=== PATIENT | female | born 1970 | race Caucasian/White ===

== ENCOUNTER 2023-05-30 13:45 | Emergency (ER) | payer MEDICAID, SELFPAY ==
[2023-05-30 13:52] VITALS: BP 153/79; PULSE 89; RESP 18; TEMP 36.3; O2SAT 98; BMI 26.9
--- NOTE | 2023-05-30 15:51 | ED_ITS ---
HPI - Extremity Problem 2 General: Chief complaint: Extremity Injury, Upper Stated complaint: Left arm pain Time Seen by Provider: 05/30/23 15:26 Source: patient Mode of arrival: ambulatory Limitations: no limitations History of Present Illness: Patient is a 53-year-old female presents to ED today with complaint of left arm pain. Patient states approximately 2 weeks ago while driving back from [place] she began having a pain near her left scapula. She noticed some burning sensation down into her left arm that seem to be worse when her arms were up on the steering wheel. She states since that incident she has intermittently had nerve pain to the arm. At times she has been asymptomatic. She states she is here in the emergency department today because it flared up and is worse than it had been. She states she is taking Lyrica, Ibuprofen, and Zanaflex without relief. She is not having any neck pain. Pain seems to be worse with range of motion of the shoulder. She has not noticed any color or temperature changes to her extremity. She has not noticed any weakness. No fevers. MD Complaint: joint pain (L scapular pain) Onset (ago): week(s) (2 weeks ago) Pain Consistency: intermittent Location: left and upper extremity Quality: burning Radiation: distal Relieving factors: movement Exacerbating factors: nothing Associated symptoms: Reports no associated symptoms; Deny chest pain, fever(s) or rash Review of Systems 2 Const: Denies: fever(s), chills, body aches, fatigue or malaise Card: Denies: chest pain Resp: Denies: dyspnea GI: Denies: abdominal pain Musc: Reports: extremity pain and joint pain; Denies: neck pain, back pain, extremity swelling, joint swelling, joint redness, joint warmth, joint stiffness, limited range of motion, muscle cramps, muscle weakness or decrease in muscle mass Skin/Breast: Denies: rash Neuro: Reports: numbness in extremities and sensory changes; Denies: headache(s) or weakness in extremities Physical Exam 2 Const: COMMON NORMALS: patient oriented x3, no limitations, alert and well nourished GENERAL APPEARANCE: cooperative and in distress (appears uncomfortable secondary to pain) Neck/C-Spine: COMMON NORMALS: full ROM GENERAL: Yes normal visual inspection CERVICAL SPINE: Yes cervical ROM normal, No pain with cervical ROM, No Cervical spine tenderness, No step off deformity, No Paracervical muscle tenderness and Yes Trapezius muscle tenderness Chest: COMMONS NORMALS: normal inspection of the chest and normal palpation of entire chest wall Back/Pelvis: COMMON NORMALS: thoracic and lumbar spine normal to inspection and no thoracic nor lumbar tenderness BACK IMAGE (FEMALE): 1. TTP; reproducible with palpation and ROM Extremity: COMMON NORMALS: normal to inspection, full ROM, capillary refill normal, no joint enlargement, no clubbing, cyanosis or edema, no calf tenderness and no pedal edema NARRATIVE EXTREMITY EXAM: pulses to L UE normal; normal color/temp; complains of burning sensation throughout posterior upper arm, dorsal forearm, and into 1-3 digits; strength intact GENERAL: Yes normal exam except as noted Neuro: COMMON NORMALS: patient oriented x3, moves all extremities, no focal motor deficits and no sensory deficits noted SENSORIUM/ORIENTATION: Yes alert MOTOR EXAM: 5/5 motor strength present throughout Course 2 Vital Signs: Vital signs: Vital Signs Temperature 97.3 F L 05/30/23 13:52 Pulse Rate 89 05/30/23 13:52 Respiratory Rate 18 05/30/23 13:52 Blood Pressure 153/79 05/30/23 13:52 Pulse Oximetry 98 05/30/23 13:52 Oxygen Delivery Me thod Room Air 05/30/23 13:52 MDM - Extremity (Nontraumatic) Medical Decision Making Will have her continue anti-inflammatories, nerve medication, muscle relaxers. Will add steroids. Recommend follow-up with her primary care provider if symptoms do not seem to be improving. Medical Records I reviewed the patient's medical records. No radiology studies performed this visit Discharge Plan Discharge Patient Disposition: Home Clinical Impression: Neuralgia of left upper extremity Condition: Stable Prescriptions: New prednisone 10 mg tablet 10 mg PO DAILY 7 Days Qty: 27 0RF Rx Instructions: 6 tabs on days 1-2, 5 tabs on days 3, 4 tabs on day 4, 3 tabs on day 5, 2 tabs on day 6, 1 tab on day 7 Discharge Orders: Discharge ED (Routine); Ordered 05/30/23 Ordered By: Anna Marie Cain Activity Restrictions/Additional Instructions: As we discussed I would like you to follow-up with your primary care provider at the end of the week for reevaluation if symptoms do not begin to improve. Coding Level of Care Code ED Logistics Manager for Jonathan Kim
[2023-05-30] MEDS: morphine 4 mg/mL SDV 1 mL IM (16:07)
[2023-05-30] MEDS: dexamethasone 10 mg/mL INJ 8 MG IM (16:08)
[2023-05-30 16:30] VITALS: BP 137/79; PULSE 82; RESP 18; O2SAT 97
== END 2023-05-30 16:32 | disposition home or self-care (01) ==
PROVIDERS: Emergency Provider Physician Assistant
DX: M79.2 Neuralgia and neuritis, unspecified (principal)
CPT/HCPCS: 96372; 99284; J1100; J2270